=== PATIENT | female | born 1945 | race Caucasian/White ===

== ENCOUNTER 2020-01-19 06:30 | Day surgery (SDC) | payer MEDICARE, MEDICAID, SELFPAY ==
[2020-01-18 15:08] VITALS: BMI 31.6
[2020-01-19 06:51] VITALS: BP 120/71; PULSE 74; RESP 18; TEMP 36.3; O2SAT 93
[2020-01-19] MEDS: sodium chloride 0.9% 1,000 ML 30 ML IV (06:59)
--- NOTE | 2020-01-19 07:03 | P.ANESASSM_ITS ---
Pre-Anesthetic Assessment Pre-Anesthetic Assessment: Height/Weight: Height 1.65 m Weight 86.183 kg Temp Pulse Resp BP Pulse Ox 97.3 F L 74 18 120/71 93 01/19/20 06:51 01/19/20 06:51 01/19/20 06:51 01/19/20 06:51 01/19/20 06:51 Preop Diagnosis: History of colon polyps Proposed Procedure: Operation Date: 01/19/20 07:40 Proposed Procedures p Colonoscopy 25779 K59.00(Not Applicable) - Heriberto Alonso MD Was Beta Rachel taken within 24 hours: Yes Last intake: Intake Last Liquid Date 01/18/20 Last Liquid Time 20:00 Last Solid Date 01/17/20 Social: Social History: Tobacco and No alcohol Packs per day: 0.5 Exam: Pre-Anes Outpt Exam: alert, oriented x 3, clear to auscultation gumaro aterally and regular rate & rhythm Airway: Submandibular: WNL Cervical ROM: WNL MP: 1 Dentition: False Pulmonary: Pulmonary: COPD, Cough and GUILLEN CV/HEM: CV/HEM: CAD, HTN and NE (2010 stent ) Comments: Angel was seen 2 weeks ago and he said everything looked good : : None reported Hepatic: Hepatic: None reported Metabolic: Metabolic: Hyperlipidemia Musc/skel: Musc/skel: OA/DJD Neuropsych: Neuropsych: None reported Anesthetic Plan: ASA status: 3 Anesthesia: MAC Risk of > 500 ml blood loss (7ml/kg in children): No Meds/Allergies Current Medications: Current Medications Generic Name Dose Route Start Last Admin Trade Name Freq PRN Reason Stop Dose Admin Sodium Chloride 1,000 mls @ 30 ml s/hr 01/19/20 06:45 01/19/20 06:59 Sodium Chloride 0.9% IV 30 mls/hr .Q24H NHI Administration PFSH Anesthesia PFSH: Medical History (Updated 01/05/20 @ 13:45 by Kenny Ortiz MD) CAD (coronary artery disease) Chronic obstructive airway disease Constipation Dyslipidemia History of colon polyps History of umbilical hernia Hypertension Myocardial infarct Venous insufficiency Surgical History (Updated 01/05/20 @ 13:45 by Kenny Ortiz MD) History of colonoscopy with polypectomy History of coronary artery stent placement History of laparoscopic cholecystectomy Family History Other Cancer Denies family history of Diabetes Anesthesia complication Bleeding disorder Social History Smoking and tobacco status: current every day smoker cigarettes Packs smoked per day: 0.5 Years cigarettes smoked: 62 [ Other cigarette details: 1 PPD Hx x 40 Years ] Quit status (tobacco): considering quitting Second hand smoke exposure: Yes Alcohol intake: never Lives independently: Yes Household members: none Marital status: / Current occupational status: retired History of recent travel: No Current gender identity: Female Data Anesthesia Cardiac Studies: No Data to Display
[2020-01-19 09:52] VITALS: BP 98/61; PULSE 77; RESP 16; TEMP 36.6; O2SAT 94
--- NOTE | 2020-01-19 09:54 | ANE.PACU2 ---
Inpatient post-anesthesia follow up: Airway intact: Yes Vital signs: Temperature 97.9 F Pulse Rate 77 Respiratory Rate 16 Blood Pressure 98/61 Pulse Oximetry 94 Oxygen Delivery Me thod Nasal Cannula Oxygen Flow Rate 2.0 Fraction of Inspir ed Oxygen Hydration adequate: Yes Nausea and vomiting: No Pain level: 1 Mental status: Baseline
[2020-01-19 10:07] VITALS: BP 103/70; PULSE 72; RESP 18; O2SAT 94
--- NOTE | 2020-01-26 15:58 | P.HP_ITS ---
Same Day Surgery H&P Indication for Procedure/HPI DATE OF PROCEDURE: January 26, 2020 CHIEF COMPLAINT/INDICATIONFOR SURGICAL PROCEDURE: history of polyps PREOP DIAGNOSIS: History of colon polyps PLANNED PROCEDRUE: Operation Date: 01/19/20 07:40 Proposed Procedures p Colonoscopy 29332 K59.00(Not Applicable) - Heriberto Alonso MD Medications/Allergies* Home Medications Medication Instructions Recorded Confirmed Type aspirin 81 mg tablet,delayed 81 mg PO DAILY 08/23/19 01/18/20 History release cholecalciferol (vitamin D3) 2,000 unit PO DAILY 08/23/19 01/19/20 History lisinopril 5 mg tablet 5 mg PO DAILY 08/23/19 01/17/20 History Allergies/Adverse Reactions Allergy/AdvReac Type Severity Reaction Status Date / Time No Known Allergies Allergy Verified 01/18/20 15:06 Pertinent History/Comorbid Conditions* Medical History (Updated 01/05/20 @ 13:45 by Kenny Ortiz MD) CAD (coronary artery disease) Chronic obstructive airway disease Constipation Dyslipidemia History of colon polyps History of umbilical hernia Hypertension Myocardial infarct Venous insufficiency Surgical History (Updated 01/19/20 @ 09:49 by Heriberto Alonso MD) History of coronary artery stent placement History of laparoscopic cholecystectomy Status post colonoscopy (01/19/20) severe diverticulosis : sigmoid colon Family History (Updated 09/02/19 @ 10:12 by Reno Liang) Cancer Denies family history of Diabetes Anesthesia complication Bleeding disorder Social History Smoking and tobacco status: current every day smoker cigarettes Packs smoked per day: 0.5 Years cigarettes smoked: 62 [ Other cigarette details: 1 PPD Hx x 40 Years ] Quit status (tobacco): considering quitting Second hand smoke exposure: Yes Alcohol intake: never Lives independently: Yes Household members: none Marital status: / Current occupational status: retired History of recent travel: No Current gender identity: Female Pertinent Exam Findings alert, oriented x 3, regular rate & rhythm and operative site marked Recommendations Surgery/Procedure today Coding Level of Care Code Acute Burling And Joining Supervisor for Elly Boykin
== END 2020-01-19 10:20 | disposition home or self-care (01) ==
PROVIDERS: Surgery; PCP Registered Nurse; Visit Provider Surgery
PROC: 0DJD8ZZ Inspection of Lower Intestinal Tract, Via Natural or Artificial Opening Endoscopic (ICD-10-PCS; CPT 45378; principal; 2020-01-19 07:40)
DX: Z86.010 Personal history of colon polyps (principal); K59.00 Constipation, unspecified; K57.30 Diverticulosis of large intestine without perforation or abscess without bleeding; F17.210 Nicotine dependence, cigarettes, uncomplicated; J44.9 Chronic obstructive pulmonary disease, unspecified; I25.10 Atherosclerotic heart disease of native coronary artery without angina pectoris; I10 Essential (primary) hypertension; I25.2 Old myocardial infarction; Z95.5 Presence of coronary angioplasty implant and graft; E78.5 Hyperlipidemia, unspecified; M19.90 Unspecified osteoarthritis, unspecified site
CPT/HCPCS: 12345; 45378; J2704; J7030

== ENCOUNTER 2020-01-24 07:57 | Outpatient (CLI) | payer MEDICARE, MEDICAID, SELFPAY ==
--- NOTE | 2020-01-24 14:23 | PFTS_ITS ---
Date of Study:01/24/20 Date of Dictation: MECHANICS: Forced vital capacity (FVC) is reduced. Forced expiratory volume in one second (FEV1) is reduced. FEV1/FVC is normal. FLOW VOLUME LOOP: Narrow. LUNG VOLUMES: Total lung capacity (TLC) is normal. Residual volume (RV) is increased. DIFFUSING CAPACITY FOR CARBON MONOXIDE: Moderately reduced. INTERPRETATION: The pulmonary function tests are consistent with moderate restriction. There is also likely contribution from obstructive lung disease as evidenced by increased residual volume. Lung volumes are suggestive of air trapping. However, a combination of restrictive lung disease with increased residual volume can be seen with neuromuscular weakness. Gas exchange (DLCO) is moderately reduced. MTDD
== END 2020-01-24 07:58 | disposition home or self-care (01) ==
LOC: RT 07:57
PROVIDERS: PCP Nurse Practitioner Family; Visit Provider Internal Medicine Critical Care Medicine
DX: J44.9 Chronic obstructive pulmonary disease, unspecified (principal)
CPT/HCPCS: 94010; 94726; 94729

== ENCOUNTER 2020-02-23 12:57 | Outpatient (CLI) | payer MEDICARE, MEDICAID, SELFPAY ==
--- NOTE | 2020-02-23 13:01 | CT_ITS ---
WS: [id number] LDCT LUNG CANCER SCREENING TECHNIQUE: Noncontrast CT of the chest with coronal and sagittal reformatted images. CLINICAL INFORMATION: NICOTINE DEPENDENCE,CIGARETTES COMPARISON: None. DLP: 71.08 mGy.cm DIvol: 2.[address] scans at [facility] use at least one of these dose optimization techniques: automat ed exposure control; mA and/or kV adjustment per patient size (includes targeted exams where dose is matched to clinical indication); or iterative reconstruction. FINDINGS: Noncalcified pulmonary nodule right lower lobe medially measuring 11 mm. This lesion has a solid appe arance and recommend further evaluation with PET/CT. Additional 3 mm noncalcified pulmonary nodule le ft upper lobe. Recommend 12 month follow-up. Aortic calcification. Coronary calcification. No mediastinal or hilar lymphadenopathy. Normal thyroid gland. Calcified granulomas. Calcified subcarinal lymph nodes. No axillary lymphadenopathy. Adrenal glands are normal. Splenic granulomas. Cholecystectomy clips. Low-attenuation lesion in the a nterior spleen measuring 4.6 x 3.9 cm likely represents splenic cyst or hemangioma. Mild thoracic cur ve with thoracic kyphosis. Anterior hypertrophic changes thoracic spine. CT/CT lung screening [id number] IMPRESSION: 1. Low-attenuation intrasplenic lesion measuring 3.9 x 4.6 cm increased in siz e since 2015 where it measured 0.8 cm. This most likely represents splenic cyst or cavernous hemangioma. This can be followed up with contrast-enhanced CT abd omen pelvis or ultrasound. 2. Additional 3 mm noncalcified nodule left upper lobe. Recommend 12 month fol low-up. 11 MM NONCALCIFIED PULMONARY NODULE RIGHT LOWER LOBE MEDIALLY. RECOMMEND FURTHE R EVALUATION WITH PET/CT. LUNG-RADS: 4B-Suspicious FOLLOW UP: PET/CT recommended
== END 2020-02-23 12:58 | disposition home or self-care (01) ==
LOC: CT 12:58
PROVIDERS: PCP Nurse Practitioner Family; Visit Provider Internal Medicine Critical Care Medicine
DX: Z12.2 Encounter for screening for malignant neoplasm of respiratory organs (principal); F17.210 Nicotine dependence, cigarettes, uncomplicated; J98.4 Other disorders of lung; R91.1 Solitary pulmonary nodule
CPT/HCPCS: G0297

== ENCOUNTER → 2020-02-27 15:56 | Outpatient (BNVA) | payer MEDICARE, MEDICAID, SELFPAY | PROVIDERS: PCP Nurse Practitioner Family; Visit Provider Nurse Practitioner Family | DX: R35.0 Frequency of micturition (principal); I50.9 Heart failure, unspecified; R60.9 Edema, unspecified | CPT/HCPCS: 81000 ==

== ENCOUNTER → 2020-02-28 08:12 | Outpatient (BNVA) | payer MEDICARE, MEDICAID, SELFPAY | PROVIDERS: PCP Nurse Practitioner Family; Visit Provider Nurse Practitioner Family | DX: R60.9 Edema, unspecified (principal); I50.9 Heart failure, unspecified | CPT/HCPCS: 80048; 83880 ==

== ENCOUNTER → 2020-03-01 16:25 | Outpatient (BNVA) | payer MEDICARE, MEDICAID, SELFPAY | PROVIDERS: PCP Nurse Practitioner Family; Visit Provider Nurse Practitioner Family | DX: R35.0 Frequency of micturition (principal); J44.9 Chronic obstructive pulmonary disease, unspecified; Z71.6 Tobacco abuse counseling; R73.09 Other abnormal glucose | CPT/HCPCS: 81000; 83036 ==

== ENCOUNTER 2020-04-10 14:23 | Outpatient (CLI) | payer MEDICARE, MEDICAID, SELFPAY ==
--- NOTE | 2020-04-10 15:00 | USCV_ITS ---
Kristel Son Age: 75 Gender: F : 1945 Exam Date: 04/10/2020 14:32 Ordering Phys: Mara Simpson Technologist: Carroll Connelly Exam Location: [facility] [place] Indication: HX CO CAD BP: 124 / 73 HR: 83 Rhythm: Sinus Technical Quality: Good MEASUREMENTS (Male / Female) Normal Values 2D ECHO LVOT Diameter 2.1 cm LV Ejection Fraction MOD 2C 63.3 % LV Ejection Fraction 2C AL 64.5 % LA Diameter 3.5 cm LA Width 3.1 cm LA Height 4.3 cm RA Width 3.4 cm RA Height 4.3 cm Aorta at Sinotubular Diameter 1.0 cm M-MODE LV Diastolic Diameter MM 4.2 cm 4.2 - 5.9 / 3.9 - 5.3 cm LV Systolic Diameter MM 2.9 cm LV Ejection Fraction MM Teich 57.4 % IVS Diastolic Thickness MM 1.1 cm 0.6 - 1.0 / 0.6 - 0.9 cm IVS Systolic Thickness MM 1.9 cm LVPW Diastolic Thickness MM 1.1 cm 0.6 - 1.0 / 0.6 - 0.9 cm LVPW Systolic Thickness MM 1.9 cm RV Diastolic Diameter MM 2.1 cm Aortic Annulus Diameter 2.7 cm LA Ao Ratio MM 1.4 MV E Point Septal Separation 0.8 cm DOPPLER AV Peak Velocity 162.3 cm/s LVOT Peak Velocity 98.0 cm/s AV Area Cont Eq vti 2.5 cm squared AV Area Cont Eq pk 2.2 cm squared MV Area PHT 4.5 cm squared Mitral E to A Ratio 0.9 MV E' Velocity 58.2 cm/s Mitral E to MV E' Ratio 10.1 Mitral E to LV E' Lateral Ratio 9.5 Mitral E to LV E' Septal Ratio 10.9 TR Peak Velocity 160.7 cm/s TR Peak Gradient 10.3 mmHg TV Peak E Velocity 71.0 cm/s Right Atrial Pressure 3.0 mmHg Pulmonary Artery Systolic Pressu 13.3 mmHg PV Peak Velocity 97.0 cm/s FINDINGS Left Ventricle Normal left ventricular size, systolic function with no regional wall motion abnormalities. LVEF is 55 to 60%. Normal left ventricular wall thickness. LV wall thickness is normal. Grade 1 diastolic dysfunction is noted. Right Ventricle The right ventricle is normal in size and function. Right Atrium The right atrium is normal in size. Left Atrium The left atrium is normal in size. Mitral Valve Structurally normal mitral valve without significant stenosis or prolapse. There is no mitral regurgitation. Aortic Valve Not well-visualized. Aortic stenosis was noted.. There is no aortic regurgitation. Tricuspid Valve Structurally normal tricuspid valve without significant stenosis or regurgitation. Insufficient TR jet to calculate RVSP. Pulmonic Valve Not well-visualized. Pericardium Normal pericardium without effusion. Aorta Normal ascending aorta dimension. CONCLUSIONS LV systolic function is normal with EF of 55 to 60%. Grade 1 diastolic dysfunction is noted. No significant valvular heart disease noted. Compared to prior echocardiogram from 11/29/2014, no significant changes have been noted. Dave Del Toro MD (Electronically Signed) Final Date: 16 April 2020 17:48 S
== END 2020-04-10 14:24 | disposition home or self-care (01) ==
LOC: US 14:25
PROVIDERS: PCP Nurse Practitioner Family; Visit Provider Nurse Practitioner Family
DX: I50.30 Unspecified diastolic (congestive) heart failure (principal); I51.81 Takotsubo syndrome
CPT/HCPCS: 93306

== ENCOUNTER → 2020-04-11 10:05 | Outpatient (BNVA) | payer MEDICARE, MEDICAID, SELFPAY | PROVIDERS: PCP Nurse Practitioner Family; Visit Provider Nurse Practitioner Family | DX: I50.30 Unspecified diastolic (congestive) heart failure (principal) | CPT/HCPCS: 80048; 83880 ==

== ENCOUNTER 2020-12-05 13:18 | Outpatient (CLI) | payer MEDICARE, MEDICAID, SELFPAY ==
--- NOTE | 2020-12-05 13:22 | XR_ITS ---
WS: [id number] Thoracic spine, 3 views, 12/05/2020 Clinical Data: M54.9 - Dorsalgia, unspecified Comparison: None. Findings: No compression fractures are seen. The disc heights are normal. There is a dextroscoliosis. Moderate osteoarthritis of all the vertebral bodies is present. There is osteoporosis. There are clips in the right upper quadrant from a cholecystectomy. XR/XR thoracic spine 3V* [id number] Impression: 1. Osteoarthritis and osteoporosis of all the thoracic vertebral bodies. 2. Slight dextroscoliosis of the thoracic spine.
--- NOTE | 2020-12-05 13:22 | XR_ITS ---
WS: [id number] Lumbar spine, 3 views, 12/05/2020 Clinical Data: M54.9 - Dorsalgia, unspecified Comparison: None. Findings: No compression fractures or subluxation is seen. There is degenerative disc narrowing at L4-L5 and L5 -S1. Osteoarthritis of the L3-L5 vertebral bodies is noted.. The transverse processes and SI joints a re normal. There are clips in the right upper quadrant from a cholecystectomy. There is calcification in the wal l of the abdominal aorta but no aneurysm. XR/XR lumbar spine 2-3V* [id number] Impression: 1. Osteoarthritis of the vertebral bodies L3-L5. 2. Degenerative disc narrowing at L4-L5 and L5-S1.
== END 2020-12-05 13:19 | disposition home or self-care (01) ==
LOC: RAD 13:20
PROVIDERS: PCP Nurse Practitioner Family; Visit Provider Nurse Practitioner Family
DX: M54.5 Low back pain (principal); M54.6 Pain in thoracic spine; M47.814 Spondylosis without myelopathy or radiculopathy, thoracic region; M81.0 Age-related osteoporosis without current pathological fracture; M41.84 Other forms of scoliosis, thoracic region; M47.816 Spondylosis without myelopathy or radiculopathy, lumbar region
CPT/HCPCS: 72072; 72100; 81000

== ENCOUNTER 2020-12-12 14:52 | Outpatient (CLI) | payer MEDICARE, MEDICAID, SELFPAY ==
--- NOTE | 2020-12-12 14:59 | XR_ITS ---
WS: [id number] DEXA (DUAL ENERGY X-RAY ABSORPTIOMETRY) Bone mineral density was performed using a [employer] machine. HISTORY: M81.0 - Age-related osteoporosis without current pathology... COMPARISON: None available. Lumbar spine BMD (L1-L4): 1.019 g/cm2 T score: -1.3 Z score: -0.3 Total hip BMD: Left: 0.773 g/cm2. T score: -1.9 Z score: -0.5 Right: 0.787 g/cm2. T score: -1.8 Z score: -0.4 10 year probability of a major osteoporotic fracture is 20%. XR/XR DEXA axial skeleton* [id number] IMPRESSION: OSTEOPENIA based upon the WHO classification for females.
== END 2020-12-12 14:53 | disposition home or self-care (01) ==
PROVIDERS: PCP Nurse Practitioner Family; Visit Provider Nurse Practitioner Family
DX: M81.0 Age-related osteoporosis without current pathological fracture (principal); M85.88 Other specified disorders of bone density and structure, other site
CPT/HCPCS: 77080

== ENCOUNTER → 2020-12-17 15:55 | Outpatient (BNVA) | payer MEDICARE, MEDICAID, SELFPAY | PROVIDERS: PCP Nurse Practitioner Family; Visit Provider Nurse Practitioner Family | DX: M81.0 Age-related osteoporosis without current pathological fracture (principal) | CPT/HCPCS: 82310 ==

== ENCOUNTER 2021-01-01 11:36 | Outpatient (RCR) | payer MEDICARE, MEDICAID, SELFPAY | END 2021-01-26 23:59 | disposition home or self-care (01) | LOC: SPT 11:36 | PROVIDERS: PCP Nurse Practitioner Family; Referring Provider Nurse Practitioner Family; Visit Provider Nurse Practitioner Family | DX: M54.5 Low back pain (principal) | CPT/HCPCS: 97110; 97161 ==

== ENCOUNTER → 2021-01-02 09:59 | Outpatient (BNVA) | payer MEDICARE, MEDICAID, SELFPAY | PROVIDERS: PCP Nurse Practitioner Family; Visit Provider Nurse Practitioner Family | DX: M51.36 Other intervertebral disc degeneration, lumbar region (principal); I10 Essential (primary) hypertension; E55.9 Vitamin D deficiency, unspecified | CPT/HCPCS: 80053; 82306 ==

== ENCOUNTER 2021-01-27 06:00 | Outpatient (RCR) | payer MEDICARE, MEDICAID, SELFPAY | END 2021-02-26 23:59 | disposition home or self-care (01) | LOC: SPT 06:00 | PROVIDERS: PCP Nurse Practitioner Family; Referring Provider Nurse Practitioner Family; Visit Provider Nurse Practitioner Family | DX: M54.5 Low back pain (principal) | CPT/HCPCS: 97110 ==

== ENCOUNTER 2021-02-14 10:02 | Outpatient (CLI) | payer MEDICARE, MEDICAID, SELFPAY ==
--- NOTE | 2021-02-14 10:11 | CT_ITS ---
WS: [id number] LDCT LUNG CANCER SCREENING HISTORY: Nicotine Dependence TECHNIQUE: Axial imaging performed from the apices to 1 cm below the costophrenic angles. Coronal and sagittal reformats are submitted with axial MIP series. All CT scans at [facility] use at least one of these dose optimization techniques: automated exposure control; mA and/or kV adjustment per patient size (includes targeted exams where dose is matched to clinical indication); or iterativ e reconstruction. DLP: 47.46 mGy.cm DIvol: 1.58 mGy COMPARISON: 02/23/2020 Diagnostic quality: Satisfactory Lung Nodules: Well-circumscribed 11 mm nodule in the superior segment RIGHT lower lobe is PET/CT nega tive and contain fat. Probably a hamartoma. There is an additional benign calcified nodule at the RIG HT lung base. No new or suspicious pulmonary nodules. Mild pleural thickening along the RIGHT superio r major fissure. Lungs: Pulmonary hyperexpansion from emphysema. Heart: Mild enlargement of the heart. No pericardial effusion. Moderate coronary artery calcification s. Other findings: Mild atherosclerosis aorta with no aneurysm. Normal size pulmonary artery. Benign RIG HT hilar and subcarinal calcified lymph nodes. Small hiatal hernia. Moderate increase in thoracic kyp hosis. CT/CT lung screening [id number] IMPRESSION: LUNG-RADS: 2-Benign Appearance or Behavior FOLLOW UP: 12 Month: Continue annual screening with LDCT OTHER FINDINGS (S MODIFIER): None.
== END 2021-02-14 10:03 | disposition home or self-care (01) ==
LOC: RAD 10:07
PROVIDERS: PCP Nurse Practitioner Family; Visit Provider Internal Medicine Critical Care Medicine
DX: Z12.2 Encounter for screening for malignant neoplasm of respiratory organs (principal); F17.210 Nicotine dependence, cigarettes, uncomplicated; I51.7 Cardiomegaly; I70.0 Atherosclerosis of aorta
CPT/HCPCS: 71271

== ENCOUNTER 2021-02-27 06:00 | Outpatient (RCR) | payer MEDICARE, MEDICAID, SELFPAY | END 2021-03-28 23:59 | disposition home or self-care (01) | LOC: SPT 06:00 | PROVIDERS: PCP Nurse Practitioner Family; Referring Provider Nurse Practitioner Family; Visit Provider Nurse Practitioner Family | DX: M54.5 Low back pain (principal) | CPT/HCPCS: 97110 ==

== ENCOUNTER → 2021-08-29 14:16 | Outpatient (BNVA) | payer MEDICARE, MEDICAID, SELFPAY | PROVIDERS: PCP Nurse Practitioner Family; Visit Provider Internal Medicine Critical Care Medicine | DX: J44.9 Chronic obstructive pulmonary disease, unspecified (principal); R91.1 Solitary pulmonary nodule; F17.210 Nicotine dependence, cigarettes, uncomplicated; J30.9 Allergic rhinitis, unspecified; J44.1 Chronic obstructive pulmonary disease with (acute) exacerbation | CPT/HCPCS: 99213 ==

== ENCOUNTER → 2021-09-16 10:34 | Outpatient (BNVA) | payer MEDICARE, MEDICAID, SELFPAY | PROVIDERS: PCP Nurse Practitioner Family; Visit Provider Nurse Practitioner Family | DX: R39.9 Unspecified symptoms and signs involving the genitourinary system (principal); R53.83 Other fatigue; I10 Essential (primary) hypertension | CPT/HCPCS: 80053; 80061; 81000; 85025 ==

== ENCOUNTER → 2022-02-19 13:04 | Outpatient (BNVA) | payer MEDICARE, MEDICAID, SELFPAY | PROVIDERS: PCP Nurse Practitioner Family; Visit Provider Internal Medicine | DX: I11.0 Hypertensive heart disease with heart failure (principal); I50.30 Unspecified diastolic (congestive) heart failure; Z95.5 Presence of coronary angioplasty implant and graft; E78.5 Hyperlipidemia, unspecified; I25.10 Atherosclerotic heart disease of native coronary artery without angina pectoris; J44.9 Chronic obstructive pulmonary disease, unspecified; F17.210 Nicotine dependence, cigarettes, uncomplicated | CPT/HCPCS: 99213; 99214 ==

== ENCOUNTER → 2022-03-05 10:16 | Outpatient (BNVA) | payer MEDICARE, MEDICAID, SELFPAY | PROVIDERS: PCP Nurse Practitioner Family; Visit Provider Internal Medicine Critical Care Medicine | DX: J44.9 Chronic obstructive pulmonary disease, unspecified (principal); R91.1 Solitary pulmonary nodule; F17.200 Nicotine dependence, unspecified, uncomplicated | CPT/HCPCS: 99213; 99214 ==

== ENCOUNTER → 2022-04-10 09:23 | Outpatient (BNVA) | payer MEDICARE, MEDICAID, SELFPAY | PROVIDERS: PCP Nurse Practitioner Family; Visit Provider Nurse Practitioner Family | DX: A09 Infectious gastroenteritis and colitis, unspecified (principal); R19.7 Diarrhea, unspecified | CPT/HCPCS: 87506 ==

== ENCOUNTER 2022-04-14 08:17 | Outpatient (CLI) | payer MEDICARE, MEDICAID, SELFPAY ==
--- NOTE | 2022-04-14 08:45 | MR_ITS ---
WS: [id number] MRI LUMBAR SPINE NONCONTRAST HISTORY: Low back pain radiating down LEFT leg. One month. COMPARISON: Radiographs 12/05/2020 TECHNIQUE: Sagittal and axial multisequence imaging is submitted. Moderate increase in thoracic kyphosis. Very slight increased signal within T5, T6, T9 and T10 probab ly due to hemangiomas. Slight increase in the lumbar lordosis. Posterior lumbar alignment is normal. L1 vertebral hemangioma . Very minimal disc desiccation. No fractures or marrow edema. Conus terminates normally at L1. L1-L2: Mild ligamentum flavum hypertrophy and facet arthritis. Mild RIGHT foraminal stenosis. L2-L3: Mild diffuse annular disc bulging. Mild ligamentum flavum and facet arthritis. Very mild bel inal stenosis. L3-L4: Mild disc bulging with moderate ligamentum flavum and facet arthritis. Small LEFT foraminal di sc protrusion with annular fissure. There is very slight contact on the LEFT exiting L3 nerve root. L4-L5: Diffuse annular disc bulging with ligamentum flavum and facet arthritis. Moderate ligamentum f lavum hypertrophy encroaching into the central canal. Moderate facet joint arthritis. Moderate centra l and subarticular recess stenosis. Mild foraminal stenosis. There is mild encroachment upon the aly ersing L5 nerve roots bilaterally. L5-S1: Mild disc bulging with a focal central and LEFT paracentral disc protrusion. Disc protrusion e xtends into the LEFT foramina. There is disc contacting the LEFT S1 and L5 nerve roots. LEFT S1 nerve root is being displaced posteriorly. Mild LEFT foraminal stenosis. Small bilateral cortical renal cysts. Tarlov cyst S2. MR/MR lumbar spine wo con* [id number] IMPRESSION: 1. Central, LEFT paracentral and foraminal disc protrusion at L5-S1 with conta ct on the LEFT L5 and S1 nerve roots. 2. Moderate central and bilateral subarticular recess stenosis at L4-5 with mi ld encroachment upon the traversing L5 nerve roots. Moderate facet joint arthri tis at L4-5. 3. Very mild RIGHT foraminal stenosis at L1-2 and bilaterally at L2-3. 4. Small LEFT foraminal disc protrusion with fissure at L3-4. Very slight cont act on the LEFT exiting L3 nerve root.
== END 2022-04-14 08:18 | disposition home or self-care (01) ==
LOC: RAD 08:18
PROVIDERS: PCP Nurse Practitioner Family; Visit Provider Nurse Practitioner Family
DX: M54.16 Radiculopathy, lumbar region (principal); M48.061 Spinal stenosis, lumbar region without neurogenic claudication; M51.26 Other intervertebral disc displacement, lumbar region; M51.27 Other intervertebral disc displacement, lumbosacral region
CPT/HCPCS: 72148

== ENCOUNTER 2022-04-22 14:13 | Outpatient (CLI) | payer MEDICARE, MEDICAID, SELFPAY ==
[2022-04-22] MEDS: iohexol 350 mg/mL 100 mL Btl PO (15:22)
[2022-04-22] MEDS: iohexol 350 mg/mL 100 mL Btl IV (15:22)
--- NOTE | 2022-04-22 15:30 | CT_ITS ---
WS: [id number] CT ABDOMEN PELVIS TECHNIQUE: Contrast-enhanced CT of the abdomen and pelvis with coronal and sagittal reformatted image s. CLINICAL INFORMATION: K57.92 - Diverticulitis of intestine, part unspecified, w... COMPARISON: PET/CT March 03, 2020 DLP: 1173.[address] scans at [facility] use at least one of these dose optimization techniques: automated e xposure control; mA and/or kV adjustment per patient size (includes targeted exams where dose is matc hed to clinical indication); or iterative reconstruction. FINDINGS:Mild thickening and enhancement of the sigmoid colon suspicious for acute diverticulitis. No drainable abscess or fluid collection. Recommend correlation for infection. Hepatomegaly with enlargement RIGHT hepatic lobe. Prior cholecystectomy. Portal vein and splenic vein are patent. Low-attenuation anterior splenic lesion measuring 5.2 x 4.1 cm consistent with cyst or h emangioma. This is FDG negative on the prior PET/CT. Calcified granuloma RIGHT lower lobe. Small esophageal hiatal hernia. Adrenal glands are normal. Norm al renal parenchymal enhancement. Small bilateral renal cysts. No hydronephrosis in either kidney. No rmal caliber abdominal aorta. Aortic calcification. Celiac and SMA are patent. Small fat-containing s upraumbilical hernia. Prior hysterectomy. Sigmoid diverticulosis. No evidence of high-grade small or large bowel obstructio n. LEFT ovarian cyst similar to the prior PET/CT measuring 2.4 x 2.2 CM. Small cystocele. No abdomin al or pelvic lymphadenopathy. No inguinal lymphadenopathy. CT/CT abdomen pelvis w con* [id number] IMPRESSION: 1. Mild thickening of the sigmoid colon with submucosal edema suspicious for a cute diverticulitis. Recommend correlation for infection. 2. No other suspicious findings. 3. Mild hepatomegaly with cholecystectomy. 4. Stable splenic cyst or hemangioma. 5. Small esophageal hiatal hernia. 6. Stable LEFT ovarian cyst. 7. No other suspicious findings.
[2022-04-22 15:31] LABS: Blood Urea Nitrogen 13 mg/dL (8-23)
== END 2022-04-22 14:14 | disposition home or self-care (01) ==
LOC: RAD 14:14
PROVIDERS: PCP Nurse Practitioner Family; Visit Provider Nurse Practitioner Family
DX: K57.92 Diverticulitis of intestine, part unspecified, without perforation or abscess without bleeding (principal); R16.0 Hepatomegaly, not elsewhere classified; D73.4 Cyst of spleen; K44.9 Diaphragmatic hernia without obstruction or gangrene; N83.202 Unspecified ovarian cyst, left side
CPT/HCPCS: 74177; 82565; 84520

== ENCOUNTER 2022-04-25 12:25 | Outpatient (CLI) | payer MEDICARE, MEDICAID, SELFPAY ==
--- NOTE | 2022-04-25 13:09 | CT_ITS ---
WS: [id number] LDCT LUNG CANCER SCREENING TECHNIQUE: Noncontrast CT of the chest with coronal and sagittal reformatted images. CLINICAL INFORMATION: annual lung screening COMPARISON: CT February 14, 2021 DLP: 74.89 mGy.cm DIvol: Mean CTDIvol: 1.60 (mGy) All CT scans at [facility] use at least one of these dose optimization techniques: automat ed exposure control; mA and/or kV adjustment per patient size (includes targeted exams where dose is matched to clinical indication); or iterative reconstruction. FINDINGS: Stable 11 mm nodule superior segment RIGHT lower lobe likely hamartoma is unchanged. Stable tiny 3 mm nodule RIGHT upper lobe. Additional tiny 2 mm nodule RIGHT upper lobe. Noncalcified granuloma RIGHT lung base. No other suspicious pulmonary parenchymal opacities. Moderat e chronic emphysematous changes with hyperinflation. Aortic calcification. Coronary calcification. No axillary lymphadenopathy. Normal GE junction. Small esophageal hiatal hernia. No mediastinal or hilar lymphadenopathy. No axillary lymphadenopathy. Cyst or hemangioma in the anterior spleen measuring 5.4 cm is unchanged. Splenic granulomas. RIGHT adrenal gland is normal.. Small LEFT adrenal adenoma. Presumed hemorrhagic cyst RIGHT kidney measuring 11 mm with increased attenuation. Cholecystectomy clips. Hypertrophic changes thoracic spine. Moderate thoracic kyphosis. CT/CT lung screening [id number] IMPRESSION: LUNG-RADS: 2-Benign Appearance or Behavior FOLLOW UP: 12 Month: Continue annual screening with LDCT
== END 2022-04-25 12:26 | disposition home or self-care (01) ==
LOC: RAD 12:25
PROVIDERS: PCP Nurse Practitioner Family; Visit Provider Internal Medicine Critical Care Medicine
DX: Z12.2 Encounter for screening for malignant neoplasm of respiratory organs (principal); F17.210 Nicotine dependence, cigarettes, uncomplicated
CPT/HCPCS: 71271

== ENCOUNTER → 2022-05-07 09:30 | Outpatient (BNVA) | payer MEDICARE, MEDICAID, SELFPAY | PROVIDERS: PCP Nurse Practitioner Family; Visit Provider Anesthesiology Pain Medicine | DX: M51.36 Other intervertebral disc degeneration, lumbar region (principal); M51.16 Intervertebral disc disorders with radiculopathy, lumbar region; M47.816 Spondylosis without myelopathy or radiculopathy, lumbar region; M79.604 Pain in right leg; M79.605 Pain in left leg; F17.210 Nicotine dependence, cigarettes, uncomplicated | CPT/HCPCS: 99205 ==

== ENCOUNTER → 2022-06-04 12:22 | Outpatient (BNVA) | payer MEDICARE, MEDICAID, SELFPAY | PROVIDERS: PCP Nurse Practitioner Family; Visit Provider Anesthesiology Pain Medicine | DX: M54.16 Radiculopathy, lumbar region (principal); M25.552 Pain in left hip | CPT/HCPCS: 64483; 64484 ==

== ENCOUNTER → 2022-06-16 13:40 | Outpatient (BNVA) | payer MEDICARE, MEDICAID, SELFPAY | PROVIDERS: PCP Nurse Practitioner Family; Visit Provider Anesthesiology Pain Medicine | DX: M54.16 Radiculopathy, lumbar region (principal) | CPT/HCPCS: 64483; 64484; J1100; J3490 ==

== ENCOUNTER → 2022-07-09 10:43 | Outpatient (BNVA) | payer MEDICARE, MEDICAID, SELFPAY | PROVIDERS: PCP Nurse Practitioner Family; Visit Provider Anesthesiology Pain Medicine | DX: M51.36 Other intervertebral disc degeneration, lumbar region (principal); M51.16 Intervertebral disc disorders with radiculopathy, lumbar region; M47.816 Spondylosis without myelopathy or radiculopathy, lumbar region; M79.604 Pain in right leg; M79.605 Pain in left leg | CPT/HCPCS: 99213 ==

== ENCOUNTER 2022-07-28 12:02 | Emergency (ER) | payer MEDICARE, MEDICAID, SELFPAY ==
--- NOTE | 2022-07-28 12:08 | PC.NURSE ---
ATTEMPTED TO TRIAGE PT. PT IS ON THE BEDSIDE COMMODE.
[2022-07-28 12:19] VITALS: BP 129/74; PULSE 73; RESP 16; TEMP 36.4; O2SAT 95
[2022-07-28 12:36] LABS: Basophils # 0.1 10^3/uL (0.0-0.1); Basophils % 0.6 %; Eosinophils # 0.1 10^3/uL (0.0-0.8); Eosinophils % 1.1 %; Hematocrit 45.1 % (37.0-47.0); Hemoglobin 14.6 g/dL (11.5-15.3); Lymphocytes # 1.3 10^3/uL (0.8-4.8); Lymphocytes % 15.1 %; Mean Corpuscular HGB Conc 32.4 g/dL (30.0-36.0); Mean Corpuscular Hemoglobin 30.9 pg (28.0-34.0); Mean Corpuscular Volume 95.3 fl (81-99); Mean Platelet Volume 12.7 fL (7.4-10.4); Monocytes # 0.4 10^3/uL (0.2-0.9); Monocytes % 4.5 %; Neutrophils # 6.95 10^3/uL (1.8-7.7); Neutrophils % 78.5 %; Nucleated Red Blood Cells % 0 %; Platelet Count 217 10^3/cmm (130-400); Red Blood Count 4.73 10^6/uL (4.1-5.3); Red Cell Distribution Width 12.8 % (12.1-15.1); White Blood Count 8.9 10^3/uL (4.0-10.0)
--- NOTE | 2022-07-28 12:49 | PC.NURSE ---
pt resting in bed, visitor at bedside. reports explosive diarrhea that began suddenly around 10:00. denies n/v or fevers. denies symptoms, denies blood in stool
--- NOTE | 2022-07-28 13:08 | ED_ITS ---
HPI - Nausea/Vomiting/Diarrhea General: Chief complaint: Nausea/Vomiting/Diarrhea Stated complaint: NEAR SYNCOPE, N. V,D Time Seen by Provider: 07/28/22 12:05 History of Present Illness: This 77-year-old female presents to the ER with acute onset nausea/vomiting/diarrhea that started around 10 AM. She has vomited twice and has had about 10 bowel movements. They are all watery with no blood in it. She has intermittent abdominal cramping which usually occurs shortly before a bowel movement. There was associated dizziness, sweating and weakness which made patient's daughter panic and bring her to the ER for evaluation. Patient appears clinically stable. Patient denies chest pain, shortness of breath or any other pertinent systemic symptoms. Associated nausea: Yes Associated symtoms: Reports nausea; Denies change in vision, chest pain, dysuria or headache(s) Review of Systems Const: Denies: chills, body aches or change in appetite Eyes: Denies: change in vision or eye discharge ENMT: Denies: throat pain, dental pain or nasal discharge Card: Denies: chest pain or lightheadedness GI: Reports: abdominal pain (Intermittent cramping.), nausea, vomiting and diarrhea : Denies: dysuria Musc: Denies: neck pain or back pain Neuro: Denies: headache(s) or weakness in extremities Psych: Denies: depression Douglas/Lymph: Denies: easy bruising All/Imm: Denies: urticaria, tongue swelling or facial swelling PFSH ED PFSH: Medical History (Updated 07/28/22 @ 15:13 by Emelia Chavis MD) CAD (coronary artery disease) Chronic obstructive airway disease Constipation Diastolic congestive heart failure Dyslipidemia History of colon polyps History of umbilical hernia Hypertension Myocardial infarct Venous insufficiency Surgical History History of coronary artery stent placement History of laparoscopic cholecystectomy Status post colonoscopy (01/19/20) severe diverticulosis : sigmoid colon Family History Other Cancer Denies family history of Diabetes Anesthesia complication Bleeding disorder Social History Smoking and tobacco status: current every day smoker cigarettes Years cigarettes smoked: 62 [ Other cigarette details: 1 PPD Hx x 40 Years] Quit status (tobacco): considering quitting Second hand smoke exposure: Yes Smoking risk assessment/counseling performed?: Yes Alcohol intake: never Counseling given: No Counseling given: No Lives independently: Yes Household members: family Marital status: / Current occupational status: retired History of recent travel: No Current gender identity: Female Physical Exam Const: COMMON NORMALS: no acute distress, patient oriented x3, no limitations and alert HENMT: COMMON NORMALS: normocephalic HEAD & SCALP: normocephalic Eye: COMMON NORMALS: EOMs intact bilaterally Neck/C-Spine: COMMON NORMALS: full ROM and supple Chest: COMMONS NORMALS: normal inspection of the chest Resp: COMMON NORMALS: normal respiratory effort, No retractions, No use of accessory muscles and clear to auscultation bilaterally AUSCULTATION: clear to auscultation bilaterally Cardio: COMMON NORMALS: regular rate, regular rhythm and No murmurs present (Cardio) RATE: regular rate RHYTHM: regular rhythm GI: COMMON NORMALS: Normal to inspection, nondistended, normoactive bowel sounds present and non-tender : COMMON NORMALS: Yes no CVA tenderness BLADDER/KIDNEY EXAM: Yes no CVA tenderness Back/Pelvis: COMMON NORMALS: no CVA tenderness and no thoracic nor lumbar tenderness Extremity: GENERAL: Yes normal exam except as noted Neuro: COMMON NORMALS: patient oriented x3 and no focal motor deficits SENSORIUM/ORIENTATION: Yes alert Psych: COMMON NORMALS: mental status grossly normal and cooperative Course Vital Signs: Vital signs: Vital Signs Temperature 97.5 F L 07/28/22 12:19 Pulse Rate 82 07/28/22 14:45 Respiratory Rate 18 07/28/22 14:45 Blood Pressure 81/66 07/28/22 14:45 Pulse Oximetry 94 07/28/22 14:45 Oxygen Delivery Me thod 07/28/22 14:45 MDM - Nausea/Vomiting/Diarrhea Medical Decision Making Medical decision making: Patient presents to the ER with acute onset nausea/vomiting that started around 10 AM this morning. At the time of ER arrival, patient had had about 10 watery bowel movements. She had vomited twice. She has no fever. On exam, abdomen is not surgical. After receiving antiemetics and IV fluids, patient felt better. There were no subsequent vomiting or diarrhea episodes in the ER. Patient was advised to provide a urine sample for testing. She said she wanted to go home because of inclement weather, she did not want to be stuck in the ER. She was advised to take Zofran as needed for nausea/vomiting and to return with any new concerning symptoms. Lab Data 07/28/22 12:06 07/28/22 12:57 Laboratory Results WBC 8.9 10^3/uL (4.0-10.0) 07/28/22 12:06 RBC 4.73 10^6/uL (4.1-5.3) 07/28/22 12:06 Hgb 14.6 g/dL (11.5-15.3) 07/28/22 12:06 Hct 45.1 % (37.0-47.0) 07/28/22 12:06 MCV 95.3 fl (81-99) 07/28/22 12:06 MCH 30.9 pg (28.0-34.0) 07/28/22 12:06 MCHC 32.4 g/dL (30.0-36.0) 07/28/22 12:06 RDW 12.8 % (12.1-15.1) 07/28/22 12:06 Plt Count 217 10^3/cmm (130-400) 07/28/22 12:06 MPV 12.7 fL (7.4-10.4) H 07/28/22 12:06 Neut % (Auto) 78.5 % 07/28/22 12:06 Lymph % (Auto) 15.1 % 07/28/22 12:06 Mcpherson % (Auto) 4.5 % 07/28/22 12:06 Eos % (Auto) 1.1 % 07/28/22 12:06 Baso % (Auto) 0.6 % 07/28/22 12:06 Neut # (Auto) 6.95 10^3/uL (1.8-7.7) 07/28/22 12:06 Lymph # (Auto) 1.3 10^3/uL (0.8-4.8) 07/28/22 12:06 Mcpherson # (Auto) 0.4 10^3/uL (0.2-0.9) 07/28/22 12:06 Eos # (Auto) 0.1 10^3/uL (0.0-0.8) 07/28/22 12:06 Baso # (Auto) 0.1 10^3/uL (0.0-0.1) 07/28/22 12:06 Nucleated RBC % (auto) 0 % 07/28/22 12:06 Nucleated RBCs # 0.0 /100WBC 07/28/22 12:06 Sodium 139 mmol/L (136-145) 07/28/22 12:57 Potassium 4.0 mmol/L (3.5-5.1) 07/28/22 12:57 Chloride 103 mmol/L (98-107) 07/28/22 12:57 Carbon Dioxide 26 mmol/L (22-29) 07/28/22 12:57 Anion Gap 14.0 (5-19) 07/28/22 12:57 BUN 16 mg/dL (8-23) 07/28/22 12:57 Creatinine 0.8 mg/dL (0.5-0.9) 07/28/22 12:57 GFR Calculation Not Reportable 07/28/22 12:57 Glucose 104 mg/dL (65-115) 07/28/22 12:57 Calculated Osmolality 289 mOsm/kg (285-295) 07/28/22 12:57 Calcium 9.8 mg/dL (8.5-10.5) 07/28/22 12:57 Total Bilirubin 0.4 mg/dL (0.15-1.2) 07/28/22 12:57 AST 24 U/L (0-32) 07/28/22 12:57 ALT 16 U/L (0-33) 07/28/22 12:57 Alkaline Phosphatase 82 U/L (35-105) 07/28/22 12:57 Total Protein 6.7 g/dL (6.6-8.7) 07/28/22 12:57 Albumin 4.0 g/dL (3.5-5.2) 07/28/22 12:57 Globulin 2.7 g/dL (1.3-4.6) 07/28/22 12:57 Discharge Plan Discharge Patient Disposition: Home Clinical Impression: Gastroenteritis Condition: Stable Prescriptions: New ondansetron 4 mg tablet,disintegrating 4 mg PO Q6H PRN (Reason: nausea and vomiting) Qty: 14 0RF No Action acetaminophen [Tylenol Arthritis Pain] 650 mg tablet extended release 650 mg PO TID coenzyme Q10 100 mg capsule 100 mg PO DAILY evening primrose oil 500 mg capsule 1,000 mg PO BID Rx Instructions: give with meal/snack carvedilol 6.25 mg tablet 6.25 mg PO BID Qty: 180 3RF ascorbate calcium (vitamin C) 500 mg tablet 500 mg PO DAILY aspirin [Aspir-Low] 81 mg tablet,delayed release (DR/EC) 81 mg PO DAILY cholecalciferol (vitamin D3) 2,000 unit/drop drops 2,000 unit PO DAILY metronidazole 250 mg tablet 250 mg PO BID 7 Days Qty: 14 0RF bupivacaine (PF) 0.25 % (2.5 mg/mL) solution 2 ml Infiltration ONCE Qty: 1 0RF tramadol 50 mg tablet 50 mg PO BID PRN (Reason: pain) 5 Days Qty: 10 0RF sodium chloride 0.9 % Solution 5 ml epidural ONCE Qty: 1 0RF bupivacaine (PF) 0.25 % (2.5 mg/mL) solution 2 ml Infiltration ONCE Qty: 1 0RF atorvastatin 80 mg tablet 80 mg PO DAILY Qty: 90 3RF lisinopril 5 mg tablet 5 mg PO DAILY Qty: 90 2RF Trelegy Ellipta 100-62.5-25 mcg blister with device See Rx Instructions .ROUTE .COMPLEX Qty: 60 6RF Dose Instruction: INHALE 1 PUFF BY MOUTH EVERY 24 HOURS Rx Instructions: INHALE 1 PUFF BY MOUTH EVERY 24 HOURS gabapentin 100 mg capsule 100 mg PO DAILY Qty: 30 0RF albuterol sulfate 90 mcg/actuation HFA aerosol inhaler See Rx Instructions .ROUTE .COMPLEX Qty: 25.5 0RF Dose Instruction: INHALE 2 PUFFS BY MOUTH FOUR TIMES DAILY Rx Instructions: INHALE 2 PUFFS BY MOUTH FOUR TIMES DAILY alendronate 70 mg tablet See Rx Instructions .ROUTE .COMPLEX Qty: 12 0RF Dose Instruction: TAKE 1 TABLET BY MOUTH WEEKLY Rx Instructions: TAKE 1 TABLET BY MOUTH WEEKLY Discharge Orders: Discharge ED (Routine); Ordered 07/28/22 Ordered By: Emelia Chavis Referrals: Ashlyn Lanier FNP [Primary Care Provider] - Patient Instructions: Opioid Safety, Pain Management Activity Restrictions/Additional Instructions: Maintain adequate fluid intake. Take Zofran as needed for nausea/vomiting. Follow-up with your primary care physician in 2 to 3 days for reevaluation. Return if you develop persistent vomiting, fever or any new concerning symptoms. Coding Level of Care Code ED Auction Clerk for Chg Fwd Exam Comprehensive
[2022-07-28] MEDS: sodium chloride 0.9% 1,000 ML 999 ML IV ×2 (13:18→14:52)
[2022-07-28] MEDS: metoclopramide 5 mg/mL SDV 2 mL 10 MG IVP (13:19)
[2022-07-28 13:27] LABS: Alanine Aminotransferase 16 U/L (0-33); Alkaline Phosphatase 82 U/L (35-105); Aspartate Amino Transferase 24 U/L (0-32); Blood Urea Nitrogen 16 mg/dL (8-23); Calcium 9.8 mg/dL (8.5-10.5); Carbon Dioxide 26 mmol/L (22-29); Chloride 103 mmol/L (98-107); Creatinine Clr Calc Pharmacy 60.5756; Globulin 2.7 g/dL (1.3-4.6); Glucose 104 mg/dL (65-115); Osmolality Calculated 289 mOsm/kg (285-295); Sodium 139 mmol/L (136-145); Total Bilirubin 0.4 mg/dL (0.15-1.2); Total Protein 6.7 g/dL (6.6-8.7)
[2022-07-28 14:01] VITALS: BP 124/62; PULSE 76; RESP 16; O2SAT 95
[2022-07-28 14:45] VITALS: BP 81/66; PULSE 82; RESP 18; O2SAT 94
== END 2022-07-28 15:22 | disposition home or self-care (01) ==
PROVIDERS: Emergency Provider Family Medicine; PCP Nurse Practitioner Family
DX: K52.9 Noninfective gastroenteritis and colitis, unspecified (principal); Z79.82 Long term (current) use of aspirin; F17.210 Nicotine dependence, cigarettes, uncomplicated; I25.10 Atherosclerotic heart disease of native coronary artery without angina pectoris; J44.9 Chronic obstructive pulmonary disease, unspecified; I11.0 Hypertensive heart disease with heart failure; I50.30 Unspecified diastolic (congestive) heart failure; E78.5 Hyperlipidemia, unspecified; I25.2 Old myocardial infarction
CPT/HCPCS: 36415; 80053; 85025; 96361; 96374; 99284; J2765; J7030

== ENCOUNTER → 2022-09-03 10:12 | Outpatient (BNVA) | payer MEDICARE, MEDICAID, SELFPAY | PROVIDERS: PCP Nurse Practitioner Family; Visit Provider Internal Medicine Pulmonary Disease | DX: J44.9 Chronic obstructive pulmonary disease, unspecified (principal); F17.210 Nicotine dependence, cigarettes, uncomplicated; Q85.9 Phakomatosis, unspecified | CPT/HCPCS: 99214 ==

== ENCOUNTER → 2022-09-24 11:21 | Outpatient (BNVA) | payer MEDICARE, MEDICAID, SELFPAY | PROVIDERS: PCP Nurse Practitioner Family; Visit Provider Nurse Practitioner Family | DX: R35.0 Frequency of micturition (principal); L81.9 Disorder of pigmentation, unspecified; I50.30 Unspecified diastolic (congestive) heart failure; I10 Essential (primary) hypertension; R05.9 Cough, unspecified; R06.02 Shortness of breath; J06.9 Acute upper respiratory infection, unspecified | CPT/HCPCS: 80053; 81000; 83880 ==

== ENCOUNTER → 2022-10-07 10:27 | Outpatient (BNVA) | payer MEDICARE, MEDICAID, SELFPAY | PROVIDERS: PCP Nurse Practitioner Family; Visit Provider Anesthesiology Pain Medicine | DX: M51.36 Other intervertebral disc degeneration, lumbar region (principal); M51.16 Intervertebral disc disorders with radiculopathy, lumbar region; M47.816 Spondylosis without myelopathy or radiculopathy, lumbar region | CPT/HCPCS: 99213; 99214 ==

== ENCOUNTER → 2022-10-13 15:42 | Outpatient (BNVA) | payer MEDICARE, MEDICAID, SELFPAY | PROVIDERS: PCP Nurse Practitioner Family; Visit Provider Internal Medicine | DX: I11.0 Hypertensive heart disease with heart failure (principal); I50.30 Unspecified diastolic (congestive) heart failure; Z95.5 Presence of coronary angioplasty implant and graft; E78.5 Hyperlipidemia, unspecified; I25.10 Atherosclerotic heart disease of native coronary artery without angina pectoris; J44.9 Chronic obstructive pulmonary disease, unspecified; F17.210 Nicotine dependence, cigarettes, uncomplicated; I25.2 Old myocardial infarction; Z79.82 Long term (current) use of aspirin | CPT/HCPCS: 99214 ==

== ENCOUNTER → 2022-10-15 12:45 | Outpatient (BNVA) | payer MEDICARE, MEDICAID, SELFPAY | PROVIDERS: PCP Nurse Practitioner Family; Referring Provider Nurse Practitioner Family; Visit Provider Dermatology | DX: L57.0 Actinic keratosis (principal); D23.62 Other benign neoplasm of skin of left upper limb, including shoulder; L85.3 Xerosis cutis; L81.4 Other melanin hyperpigmentation; L57.8 Other skin changes due to chronic exposure to nonionizing radiation | CPT/HCPCS: 17000; 17003; 99203 ==

== ENCOUNTER → 2022-12-24 14:46 | Outpatient (BNVA) | payer MEDICARE, MEDICAID, SELFPAY | PROVIDERS: PCP Nurse Practitioner Family; Visit Provider Nurse Practitioner Family | DX: I50.30 Unspecified diastolic (congestive) heart failure (principal); I10 Essential (primary) hypertension | CPT/HCPCS: 80053; 83880 ==

== ENCOUNTER → 2023-01-01 09:27 | Outpatient (BNVA) | payer MEDICARE, MEDICAID, SELFPAY | PROVIDERS: PCP Nurse Practitioner Family; Visit Provider Nurse Practitioner Family | DX: I50.30 Unspecified diastolic (congestive) heart failure (principal); Z79.899 Other long term (current) drug therapy | CPT/HCPCS: 84132 ==

== ENCOUNTER → 2023-01-27 16:47 | Outpatient (BNVA) | payer MEDICARE, MEDICAID, SELFPAY | PROVIDERS: PCP Nurse Practitioner Family; Visit Provider Internal Medicine | DX: I10 Essential (primary) hypertension (principal); I25.10 Atherosclerotic heart disease of native coronary artery without angina pectoris; J44.0 Chronic obstructive pulmonary disease with (acute) lower respiratory infection; I50.30 Unspecified diastolic (congestive) heart failure | CPT/HCPCS: 36415; 80048; 83880; 99214 ==

== ENCOUNTER 2023-02-05 08:33 | Outpatient (CLI) | payer MEDICARE, MEDICAID, SELFPAY ==
--- NOTE | 2023-02-05 08:45 | USCV_ITS ---
Kristel Son Age: 77 Gender: F : 1945 Exam Date: 02/05/2023 09:01 Ordering Phys: Dave Del Toro M.D ([email or web address]) Technologist: Elizabeth Holland Exam Location: [facility] – [place] Indication: CP, SOB BP: 120 / 60 HR: 79 Rhythm: Sinus Technical Quality: Good MEASUREMENTS (Male / Female) Normal Values 2D ECHO LV Diastolic Diameter PLAX 3.8 cm 4.2 - 5.9 / 3.9 - 5.3 cm LV Systolic Diameter PLAX 2.4 cm IVS Diastolic Thickness 1.4 cm 0.6 - 1.0 / 0.6 - 0.9 cm IVS Systolic Thickness 1.9 cm LVPW Diastolic Thickness 1.4 cm 0.6 - 1.0 / 0.6 - 0.9 cm LVPW Systolic Thickness 2.1 cm LVOT Diameter 2.0 cm LV Ejection Fraction 2D Teich 68.7 % LV Ejection Fraction MOD 2C 71.1 % LV Ejection Fraction 2C AL 73.0 % LA Diameter 3.1 cm LA Width 3.3 cm LA Height 4.8 cm RA Width 3.0 cm RA Height 3.5 cm Aorta at Sinotubular Diameter 2.5 cm IVC Diameter 1.6 cm M-MODE Aortic Annulus Diameter 2.9 cm LA Ao Ratio MM 1.2 MV E Point Septal Separation 0.4 cm DOPPLER AV Peak Velocity 142.0 cm/s LVOT Peak Velocity 105.7 cm/s AV Area Cont Eq vti 2.8 cm squared AV Area Cont Eq pk 2.5 cm squared MV Area PHT 4.1 cm squared Mitral E to A Ratio 0.8 MV E' Velocity 40.0 cm/s Mitral E to MV E' Ratio 10.3 Mitral E to LV E' Lateral Ratio 10.6 Mitral E to LV E' Septal Ratio 10.0 TR Peak Velocity 200.5 cm/s TR Peak Gradient 16.1 mmHg Right Atrial Pressure 5.0 mmHg Pulmonary Artery Systolic Pressu 21.1 mmHg PV Peak Velocity 96.0 cm/s RV Acceleration Time 0.1 s RV Ejection Time 0.3 s RV AcT/ET 0.2 FINDINGS Left Ventricle Left ventricle is normal in size. LV systolic function is normal with EF 55 to 60%. No regional wall motion abnormalities are seen. Grade 1 diastolic dysfunction Right Ventricle Normal in size and function Right Atrium Normal in size Left Atrium Normal in size Mitral Valve Mild mitral annular calcification. Trace mitral regurgitation. Aortic Valve Structurally normal aortic valve. No significant stenosis or regurgitation. Tricuspid Valve Trace tricuspid regurgitation. Pulmonary artery systolic pressure is normal. Pulmonic Valve Not well visualized Pericardium Normal Aorta Normal in size IVC Appears to be normal CONCLUSIONS LV systolic function is normal with EF 55 to 60%. Grade 1 systolic dysfunction Trace mitral regurgitation Trace tricuspid regurgitation Compared to prior echocardiogram from 2019, patient has trace mitral regurgitation and tricuspid regurgitation. Dave Del Toro MD (Electronically Signed) Final Date: 18 February 2023 09:30 S
== END 2023-02-05 08:34 | disposition home or self-care (01) ==
PROVIDERS: PCP Nurse Practitioner Family; Visit Provider Internal Medicine
DX: I50.30 Unspecified diastolic (congestive) heart failure (principal); I08.1 Rheumatic disorders of both mitral and tricuspid valves
CPT/HCPCS: 93306

== ENCOUNTER 2023-02-12 06:38 | Outpatient (CLI) | payer MEDICARE, MEDICAID, SELFPAY ==
--- NOTE | 2023-02-12 | ECG_ITS ---
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 Interpretive Statements NAME OF STUDY: LEXISCAN SESTAMIBI STRESS TEST INDICATION: [Chest Pain] Procedure: At the baseline, the blood pressure was 140/73 mmHg with a heart rate of 76 bpm. The electrocardiogram showed normal sinus rhythm, normal axis with normal ST and T's. The Lexiscan was infused over a period of 20 seconds. A total of 0.4 mg of Lexiscan was infused. The stress phase was continued for a total of 5 minutes. Heart rate was at the end of stress phase was 92 bpm and a blood pressure of 135/58 mmHg. The EKG at the peak infusion revealed normal sinus rhythm with no significant ST-T wave changes. Sestamibi was injected 20 seconds after the Lexiscan infusion. Blood pressure at the end of recovery phase was 128/54 mmHg with a heart rate of 86 bpm. Conclusion: 1. Normal EKG response to Lexiscan infusion 2. No Lexiscan induced chest pain or cardiac arrhythmia. 3. Normal blood pressure and heart rate response. 4. Sestamibi/sestamibi perfusion scan pending; see separate report. Electronically Signed On 03-04-2023 14:45:25 CDT by Dave Del Toro M.D. [id number]
[2023-02-12 06:44] VITALS: BMI 31.6
--- NOTE | 2023-02-12 06:46 | NMCV_ITS ---
NM césar perf SPECT r/s* [id number] Kristel Son Age: 77 Gender: F : 1945 Exam Date: 02/12/2023 08:14 Ordering Phys: Dave Del Toro M.D ([email or web address]) Technologist: CINTHYA Lopez Exam Location: [facility] Indications: ATHEROSCLEROTIC HEART DISEASE STRESS TEST Please see separate stress test report in [facility] for full findings IMAGE PROTOCOL Rest/Stress 1 Lexiscan Day Radiopharmaceutical Dose (mCi) Administration Site Administered by Rest: Tc-99m 10.8 IV Steffen Mendenhall, CLINICAL LAB ASSISTANT Sestamibi Stress:Tc-99m 32.8 IV Steffen Mendenhall, CLINICAL LAB ASSISTANT Sestamibi Rest: 02/12/2023 60 Discovery 630 Stress: 02/12/2023 30 Discovery 630 0.4mg Lexiscan. Supine position only as patient was unable to lay prone. SPECT RESULTS Technical Quality: Excellent Raw Data Analysis: Normal Image Corrections: No attenuation or motion correction applied Summed Stress Score: 11 Summed Rest Score: 8 Summed Difference Score: 4 PERFUSION FINDINGS There is a large sized partially reversible perfusion defect seen in inferolateral wall. This is consistent with a large sized prior infarct with significant aris-infarct ischemia in left circumflex artery territory. There is medium sized area of reversible perfusion defect seen in inferior wall. This is consistent with medium sized area of ischemia in RCA territory. FUNCTIONAL RESULTS (calculated via Gated SPECT) Stress Image LV EF (%): 61 Stress EDV (mL):94 TID: 0.94 Stress ESV (mL):37 FUNCTIONAL FINDINGS: There is normal left ventricular systolic function. IMPRESSIONS 1. Abnormal myocardial perfusion imaging with large area of prior infarct with significant aris-infarct ischemia in the left circumflex artery territory. 2. Medium sized area of ischemia seen in RCA territory. 3. LV systolic function is normal. Dave Del Toro MD (Electronically Signed) Final Date: 12 February 2023 18:09 S
[2023-02-12] MEDS: regadenoson 0.4 Mg/5 ml Syringe IVP (08:55)
[2023-02-12 09:26] VITALS: BP 128/54; PULSE 91
== END 2023-02-12 06:39 | disposition home or self-care (01) ==
LOC: CDL 06:39
PROVIDERS: PCP Nurse Practitioner Family; Visit Provider Internal Medicine
DX: R07.9 Chest pain, unspecified (principal); I25.9 Chronic ischemic heart disease, unspecified
CPT/HCPCS: 36415; 78452; 93017; 96374; A9500; J2785

== ENCOUNTER 2023-03-05 10:15 | Observation (INO) | payer MEDICARE, MEDICAID, SELFPAY ==
[2023-03-04 10:19] VITALS: BP 134/91; PULSE 83
[2023-03-04 10:49] VITALS: BP 159/59; PULSE 72
[2023-03-04 11:19] VITALS: BP 133/66; PULSE 79
[2023-03-05] MEDS: diphenhydrAMINE 50 mg Capsule PO (07:45)
[2023-03-05 08:01] LABS: Basophils # 0.1 10^3/uL (0.0-0.1); Basophils % 0.8 %; Eosinophils # 0.4 10^3/uL (0.0-0.8); Eosinophils % 6.1 %; Hematocrit 40.4 % (36-47); Lymphocytes # 1.8 10^3/uL (0.8-4.8); Lymphocytes % 25.5 %; Mean Corpuscular HGB Conc 32.2 g/dL (30-55); Mean Corpuscular Hemoglobin 30.6 pg (27-33); Mean Corpuscular Volume 95.1 fl (85-98); Mean Platelet Volume 11.5 fL (7.4-10.4); Monocytes # 0.7 10^3/uL (0.2-0.9); Monocytes % 9.7 %; Neutrophils # 4.15 10^3/uL (1.8-7.7); Neutrophils % 57.6 %; Nucleated Red Blood Cells % 0 %; Platelet Count 211 10^3/cmm (157-399); Red Blood Count 4.25 10^6/uL (3.85-5.65); Red Cell Distribution Width 13.2 % (12.1-15.1); White Blood Count 7.21 10^3/uL (3.29-11.43)
[2023-03-05 08:08] VITALS: BMI 31.6
[2023-03-05 08:15] VITALS: BP 139/79; PULSE 73; RESP 18; TEMP 36.7; O2SAT 93
[2023-03-05 08:17] LABS: Anion Gap 11.8 (5-19); Blood Urea Nitrogen 14 mg/dL (8-23); Calcium 10.4 mg/dL (8.5-10.5); Carbon Dioxide 31 mmol/L (22-29); Chloride 104 mmol/L (98-107); Creatinine Clr Calc Pharmacy 59.5955; Glucose 103 mg/dL (65-115); Osmolality Calculated 297 mOsm/kg (285-295); Potassium 3.8 mmol/L (3.5-5.1); Sodium 143 mmol/L (136-145)
--- NOTE | 2023-03-05 08:30 | XACV_ITS ---
Exam Room: [facility] Ht: 163 cm Wt: 83 kg BSA: 1.97 m2 Gender: Female : 1945 Any Known Allergies: Other Exam Priority: Routine Procedure(s): Procedure Description: Diagnostic procedure Procedure Description: Left Heart Catheterization Procedure Description: Miscellaneous Procedure Description: Angio-Seal Procedure Description: Coronary Angiography Diagnostic Cath Status: Elective Diagnostic Findings * INDICATION: 77-year-old woman with past medical history of CAD who has been having on and off chest discomfort episodes. The stress test was performed that is abnormal. Plan for coronary angiogram with possible percutaneous coronary intervention. * Left Main has no significant disease. * Left Anterior Descending has mild luminal irregularities. * Circumflex has mild luminal irregularities. * Distal Right Coronary Artery has 2 tandem 40% lesions. * Coronary angiography shows right dominance. Interventional Findings * PROCEDURE DETAIL: We engaged RCA with JR4 guide catheter. IV heparin was administered to maintain anticoagulation. After normalization, we advanced the iFR wire distal to the stenosis. iFR was performed and we got a value of 0.97. As it was non-ischemic final angiogram was performed. Guide catheter was removed. Patient left the clinical laboratory medical director in a stable condition. . Conclusions 1. Moderate distal RCA stenoses s/p iFR that was non-ischemic. Medical therapy. Recommendations * Aggressive risk factor modification. * Outpatient cardiology follow up in 4 weeks. Interventional RX Recommendation: medical therapy and/or counseling Anticoagulation: Heparin Pressures Phase:Rest AO : 98 / 61 ( 79 ) @ 10:13:00 AM 91 / 46 ( 68 ) @ 10:22:00 AM 128 / 79 ( 97 ) @ 10:38:00 AM 146 / 63 ( 100 ) @ 10:46:00 AM 123 / 59 ( 87 ) @ 10:49:00 AM 164 / 64 ( 108 ) @ 10:54:00 AM 164 / 64 ( 108 ) @ 10:54:00 AM LV : 158 / -12 / 16 @ 10:54:00 AM 161 / -12 / 16 @ 10:54:00 AM Valves Phase:DefaultPhase AV : 0.0 @ 9:31:52 AM 0.0 @ 9:31:52 AM AV Mean Gradient: 0.0 @ 9:31:52 AM 0.0 @ 9:31:52 AM Clinical Evaluation EBL: 5mL-10mL Procedural Details Procedure Consent Obtained. Pre-Procedure Time Out. Identified patient by full name and date of as verbalized by the patient/guarantor. Does the consent match the physician's order: Yes. Accurate & Complete Informed Consent: Yes. Inpatient/Outpatient History & Physical on Chart: Yes. If H&P is completed, is and addenduem needed: No. Visualize and Verify Site with Patient/Guarantor: N/A. Relevant Radiology Images available: Yes. The risks, benefits, and alternatives of sedation and/or procedure were discussed by physician. The patient agrees to continue. Procedure started. [facility] Clinical Fraility Score: 3: Managing Well. Musculoskeletal Physician Indications: New Onset Angina/Abnormal stress test/CP. Chest Pain Symptom Assessment: Typical Angina Symptoms. Cardiovascular Instability: No. Correct patient, site and procedure confirmed by cath team. PERRLA. Strong, equal hand instructional manager bilaterally. Lungs clear x 5 lobes. IV Site on Arrival: 20 gauge in the left anticubital. IV Fluids: 0.9% NaCl at KVO. 0 mL infused prior to clinical laboratory medical director. Pre Procedural Pulses: bilateral dorsalis pedis was 1+. Pre Procedural Pulses: bilateral posterior tibial was 1+. Pre Procedural Pulses: bilateral radial was 3+. Oxygen started at 2liters/min via nasal canula. right groin was prepped with chloroprep then draped in the usual sterile fashion. right radial was prepped with chloroprep then draped in the usual sterile fashion. Physician notified. Patient's family in CPRU room #2. Dr. Del Toro will update at the completion of the procedure. Equipment: 5F - Radial. Cardiac Cath Pack. ACIST Manifold Kit Model BT 2000. Heparinized Saline (2 units/mL), 1000 mL bag. Inventory is [employer] 5Fr [facility]. Physician arrived. Baseline sample Acquired. HR: 65 BPM. Physician scrubbed in. Immediate Pre-Procedure Time Out. Correct Patient: Yes; Correct Procedure: Yes; Correct Site: Yes; Correct Patient Position: Yes; Correct Supplies: Yes; Dried Flammable Prep: Yes; Blood Products Available: N/A;. Lidocaine 1% infiltrated to the right radial. Arterial access obtained. A 5 mongolian TIG catheter in over the exchange J wire. Multiple views taken of left coronary artery. Catheter redirected to the RCA, unable to cannulate. Catheter removed over the exchange J wire. A 5 mongolian JR4 catheter in over the exchange J wire. Multiple views taken of right coronary artery. Catheter removed over the exchange J wire. A 5 mongolian JL 3.5 catheter in over the exchange J wire. Catheter removed over the exchange J wire. Unable to get optimal cineography, will move to femoral access. A TR Band was successful obtaining hemostatsis at the Right Radial artery insertion site. Lidocaine 1% infiltrated to the right groin. Arterial access obtained with micropuncture set. A 5 mongolian JL4 catheter in over the exchange J wire. Multiple views taken of right coronary artery. Catheter removed over the exchange J wire. Sheath upsized to a 6 Fr. 6 mongolian JR 4 guide catheter was inserted over the standard J wire. iFR guidewire was advanced through the guide catheter to lesion in the distal RCA. iFR spot measurement of the mid-distal RCA 0.97 with a pullback of 0.97. Guide catheter out over the standard J wire. A 5 mongolian Angled Pig catheter in over the standard J wire. EDP Sample taken: LV 158/-13,16; HR: 90 BPM; SpO2: 98%. Pullback taken: LV 161/-13,16; AO 164/64(108); Mean: 0mmHg, Peak to Peak: 0mmHg, SEP: 21sec/min; HR: 88 BPM; SpO2: 99%. Catheter removed over the standard J wire. A Right femoral angiogram was performed to determine safe placement of closure device. A Angio-Seal VIP ([facility]) was successful obtaining hemostatsis at the Right Femoral artery insertion site. Angioseal placed without complications. No signs or symptoms of hematoma noted. Sterile dressing applied per usual sterile fashion. Lot #[id number]. Exp 2023-07-29. Dr. Del Toro scrubbed out. Post Procedure: Pulses reassessed and unchanged. PERRLA. Strong, equal hand instructional manager bilaterally. No VTE prophylaxis required. Medication's Wasted: Nitro = 49.8 mg. Medication's Wasted: Heparin = 4000 Units. Medication's Wasted: Other = Fentanyl 50 mcg. Total IV fluids: 68 mL. Post-op diagnosis: Moderate RCA stenosis/Non obstructive CAD. Complications: none. Estimated blood loss: 5mL-10mL. Responsiveness - Normal response to verbal stimuli; alert and oriented, PERRLA. Airway - Unaffected, no intervention required; spontaneous ventilation. Circulation: W/N/L, pulses unchanged. Nausea/Vomiting: No. Procedure completed. Patient transferred by bed to ICU. Vital chart was stopped. Procedure started. Procedure started. Access Site Site: Right Radial artery Sheath Size: 5 Fr Hemostasis Method: TR Band Hemostasis Success: Successful Site: Right Femoral artery Sheath Size: 5 Fr Hemostasis Method: Angio-Seal VIP ([facility]) Hemostasis Success: Successful Procedure Medications Start: 9:05 AM Stop: 9:05 AM Medication: Versed Amount: 1 mg Route: I.V. Start: 9:05 AM Stop: 9:05 AM Medication: Fentanyl Amount: 50 mcg Route: I.V. Start: 9:10 AM Stop: 9:10 AM Medication: Nitrogylcerin Amount: 200 mcg Route: I.A. Start: 9:13 AM Stop: 9:13 AM Medication: Heparin Amount: 5000 units Route: I.V. Start: 9:29 AM Stop: 9:29 AM Medication: Versed Amount: 1 mg Route: I.V. Start: 9:35 AM Stop: 9:35 AM Medication: Fentanyl Amount: 50 mcg Route: I.V. Start: 9:44 AM Stop: 9:44 AM Medication: Heparin Amount: 2000 units Route: I.V. Start: 9:56 AM Stop: 9:56 AM Medication: Fentanyl Amount: 25 mcg Route: I.V. Start: 9:56 AM Stop: 9:56 AM Medication: Fentanyl Amount: 25 mcg Route: I.V. I, the attending physician, have reviewed and verified all procedure medications. Yes, all medications given per verbal order History/Risk Factors Hypertension: Yes Dyslipidemia: Yes Peripheral Arterial Disease (PAD): No Myocardial Infarction (OR): No Obesity: Yes Renal Disease: No Tobacco Use: Current/Recent(w/in 1 year) Prior Interventions PCI: Yes CABG: No Valve Surgery: No Date of PCI: 09/30/2009 Report Signatures Finalized by Dave Del Toro MD on 03/21/2023 01:47 PM
--- NOTE | 2023-03-05 09:01 | P.HP_ITS ---
Same Day Surgery H&P Indication for Procedure/HPI DATE OF PROCEDURE: March 05, 2023 CHIEF COMPLAINT/INDICATIONFOR SURGICAL PROCEDURE: Chest pain/abnormal stress test PREOP DIAGNOSIS: Chest pain/abnormal stress test PLANNED PROCEDURE: Operation Date: 03/05/23 08:30 Proposed Procedures p [facility] [address]91,R94.39(Left) - Dave Del Toro M.D Possible percutaneous coronary intervention 77-year-old woman with past medical history of CAD who has been having on and off chest discomfort episodes. The stress test was performed that is abnormal. Plan for coronary angiogram with possible percutaneous coronary intervention Medications/Allergies* Home Medications Medication Instructions Recorded Confirmed Type aspirin 81 mg tablet,delayed 81 mg PO DAILY 08/23/19 03/05/23 History release (Aspir-Low) cholecalciferol (vitamin D3) 50 2,000 unit PO DAILY 08/23/19 03/05/23 History mcg/drop (2,000 unit/drop) oral drops acetaminophen 650 mg 650 mg PO TID 01/30/21 03/05/23 History tablet,extended release (Tylenol Arthritis Pain) Allergies/Adverse Reactions Allergy/AdvReac Type Severity Reaction Status Date / Time meloxicam Allergy Intermediate could not Verified 03/05/23 07:40 breath well Current Medications: Generic Name Dose Route Start Last Admin Trade Name Freq PRN Reason Stop Dose Admin Sodium Chloride 1,000 mls @ 50 mls/hr 03/05/23 07:30 03/05/23 08:13 Sodium Chloride 0.9% IV 03/06/23 03:29 Not Given .Q20H ONE Pertinent History/Comorbid Conditions* Medical History (Updated 01/01/23 @ 09:14 by WALLY Bhatti) CAD (coronary artery disease) Chronic obstructive airway disease Constipation Diastolic congestive heart failure Dyslipidemia History of colon polyps History of umbilical hernia Hypertension Myocardial infarct Venous insufficiency Surgical History (Updated 01/19/20 @ 09:49 by Heriberto Alonso MD) History of coronary artery stent placement History of laparoscopic cholecystectomy Status post colonoscopy (01/19/20) severe diverticulosis : sigmoid colon Family History (Updated 09/02/19 @ 10:12 by Reno Liang) Cancer Denies family history of Diabetes Anesthesia complication Bleeding disorder Social History Smoking and tobacco status: current every day smoker cigarettes Years cigarettes smoked: 62 [ Other cigarette details: 1 PPD Hx x 40 Years] Quit status (tobacco): considering quitting Second hand smoke exposure: Yes Smoking risk assessment/counseling performed?: Yes Alcohol intake: never Counseling given: No Substance/Drug Use: never Counseling given: No Lives independently: Yes Household members: family Marital status: / Current occupational status: retired Do you think of yourself as: Straight/Heterosexual Current gender identity: Female Pertinent Exam Findings alert, oriented x 3, clear to auscultation bilaterally and regular rate & rhythm Conscious Sedation Assessment PATIENT ASSESSED PRIOR TO SEDATION, WITH NO CHANGE NOTED: Yes AIRWAY EVAL/ANESTHESIA PLAN: normal airway, see other exam findings, ASA III, Local Anesthesia, Risks, benefits & alternatives of sedation and/or procedure discussed and Patient agrees to continue as planned ADDITIONAL INFORMATION: Moderate sedation Recommendations Surgery/Procedure today (Left heart cath with possible percutaneous coronary intervention) Coding Level of Care Code Acute Code for Chg Fwd Diagnoses
== END 2023-03-05 18:00 | disposition home or self-care (01) ==
LOC: ICU 10:15
PROVIDERS: Admitting Provider Internal Medicine; PCP Nurse Practitioner Family; Visit Provider Internal Medicine
DX: I25.10 Atherosclerotic heart disease of native coronary artery without angina pectoris (principal); E78.5 Hyperlipidemia, unspecified; E66.9 Obesity, unspecified; Z68.31 Body mass index [BMI] 31.0-31.9, adult; Z79.82 Long term (current) use of aspirin; J44.9 Chronic obstructive pulmonary disease, unspecified; I11.0 Hypertensive heart disease with heart failure; I50.30 Unspecified diastolic (congestive) heart failure; I25.2 Old myocardial infarction
CPT/HCPCS: 36415; 80048; 85025; 93458; 93571; 96361; 96365; 96367; 99152; 99153; C1760; C1769; C1887; C1894; G0378; J1644; J2250; J3010; J3490; J7030; Q0163; Q9967

== ENCOUNTER → 2023-03-23 09:49 | Outpatient (BNVA) | payer MEDICARE, MEDICAID, SELFPAY | PROVIDERS: PCP Nurse Practitioner Family; Visit Provider Anesthesiology Pain Medicine | DX: M51.36 Other intervertebral disc degeneration, lumbar region; M51.16 Intervertebral disc disorders with radiculopathy, lumbar region; M47.816 Spondylosis without myelopathy or radiculopathy, lumbar region; I25.10 Atherosclerotic heart disease of native coronary artery without angina pectoris; F17.210 Nicotine dependence, cigarettes, uncomplicated | CPT/HCPCS: 36415; 99213; 99214 ==

== ENCOUNTER → 2023-04-13 09:12 | Outpatient (BNVA) | payer MEDICARE, MEDICAID, SELFPAY | PROVIDERS: PCP Nurse Practitioner Family; Visit Provider Internal Medicine Pulmonary Disease | DX: J44.9 Chronic obstructive pulmonary disease, unspecified (principal); R91.1 Solitary pulmonary nodule; F17.210 Nicotine dependence, cigarettes, uncomplicated; K11.9 Disease of salivary gland, unspecified | CPT/HCPCS: 99214 ==

== ENCOUNTER → 2023-09-08 12:20 | Outpatient (BNVA) | payer MEDICARE, MEDICAID, SELFPAY | PROVIDERS: PCP Nurse Practitioner Family; Visit Provider Internal Medicine | DX: I11.0 Hypertensive heart disease with heart failure (principal); I50.30 Unspecified diastolic (congestive) heart failure; Z95.5 Presence of coronary angioplasty implant and graft; E78.5 Hyperlipidemia, unspecified; I25.10 Atherosclerotic heart disease of native coronary artery without angina pectoris; J44.9 Chronic obstructive pulmonary disease, unspecified; F17.210 Nicotine dependence, cigarettes, uncomplicated | CPT/HCPCS: 99214 ==

== ENCOUNTER → 2023-09-29 09:10 | Outpatient (BNVA) | payer MEDICARE, MEDICAID, SELFPAY | PROVIDERS: PCP Nurse Practitioner Family; Visit Provider Anesthesiology Pain Medicine | DX: M51.36 Other intervertebral disc degeneration, lumbar region; M51.16 Intervertebral disc disorders with radiculopathy, lumbar region; M47.816 Spondylosis without myelopathy or radiculopathy, lumbar region; M48.061 Spinal stenosis, lumbar region without neurogenic claudication | CPT/HCPCS: 99213 ==

== ENCOUNTER → 2023-10-15 09:12 | Outpatient (BNVA) | payer MEDICARE, MEDICAID, SELFPAY | PROVIDERS: PCP Nurse Practitioner Family; Visit Provider Internal Medicine Pulmonary Disease | DX: J43.2 Centrilobular emphysema (principal); R91.1 Solitary pulmonary nodule; F17.210 Nicotine dependence, cigarettes, uncomplicated; J44.9 Chronic obstructive pulmonary disease, unspecified | CPT/HCPCS: 99214 ==

== ENCOUNTER 2023-11-20 14:55 | Outpatient (CLI) | payer MEDICARE, MEDICAID, SELFPAY ==
[2023-11-20 15:13] LABS: Basophils # 0.1 10^3/uL (0.0-0.1); Basophils % 0.8 %; Eosinophils # 0.5 10^3/uL (0.0-0.8); Eosinophils % 6.2 %; Hematocrit 40.1 % (36-47); Lymphocytes # 2.2 10^3/uL (0.8-4.8); Lymphocytes % 28.2 %; Mean Corpuscular HGB Conc 32.7 g/dL (30-55); Mean Corpuscular Hemoglobin 30.9 pg (27-33); Mean Corpuscular Volume 94.6 fl (85-98); Monocytes # 0.7 10^3/uL (0.2-0.9); Monocytes % 8.7 %; Neutrophils # 4.31 10^3/uL (1.8-7.7); Nucleated Red Blood Cells % 0 %; Platelet Count 186 10^3/cmm (157-399); Red Blood Count 4.24 10^6/uL (3.85-5.65); Red Cell Distribution Width 12.8 % (12.1-15.1)
[2023-11-20 15:34] LABS: Alanine Aminotransferase 25 U/L (0-33); Albumin Level 3.9 g/dL (3.5-5.2); Alkaline Phosphatase 89 U/L (35-105); Anion Gap 10.2 (5-19); Aspartate Amino Transferase 29 U/L (0-32); Blood Urea Nitrogen 10 mg/dL (8-23); Calcium 10.7 mg/dL (8.5-10.5); Carbon Dioxide 28 mmol/L (22-29); Chloride 103 mmol/L (98-107); Globulin 2.8 g/dL (1.3-4.6); Glucose 83 mg/dL (65-115); Lipase 45 U/L (13-60); Osmolality Calculated 282 mOsm/kg (285-295); Potassium 4.2 mmol/L (3.5-5.1); Sodium 137 mmol/L (136-145); Total Bilirubin 0.4 mg/dL (0.15-1.2); Total Protein 6.7 g/dL (6.6-8.7)
== END 2023-11-20 14:56 | disposition home or self-care (01) ==
LOC: LAB 14:59
PROVIDERS: PCP Nurse Practitioner Family; Visit Provider Nurse Practitioner Family
DX: R10.9 Unspecified abdominal pain (principal)
CPT/HCPCS: 36415; 80053; 81000; 83690; 85025

== ENCOUNTER 2023-11-26 16:37 | Outpatient (CLI) | payer MEDICARE, MEDICAID, SELFPAY ==
--- NOTE | 2023-11-26 17:30 | CT_ITS ---
WS: [id number] CT ABDOMEN AND PELVIS WITH CONTRAST HISTORY: R10.9 - Unspecified abdominal pain TECHNIQUE: Imaging performed of the abdomen and pelvis with IV contrast. Single phase imaging of the abdomen. Coronal and sagittal reformats are submitted. All CT scans at [facility] use at ar st one of these dose optimization techniques: automated exposure control; mA and/or kV adjustment per patient size (includes targeted exams where dose is matched to clinical indication); or iterative re construction. IV CONTRAST: Omnipaque 350; 100 mL IV. Oral contrast: Yes. DLP: 531.44 mGy.cm COMPARISON: 04/22/2022 Lower thorax: Benign granuloma RIGHT lung base. No pneumonia. Mild cardiomegaly. Small hiatal hernia. Liver/biliary system: Normal size liver with scattered granulomata. Normal portal vein. Gallbladder: Prior cholecystectomy. Pancreas: Normal size pancreas and pancreatic duct. No adjacent inflammation. Spleen: Low-attenuation cystic mass in the anterior spleen measures 4.6 x 5.5 cm. This mass has been previously described and probably represents a splenic cyst. No significant enhancement. Additional s plenic granulomata. Adrenal glands: Mild thickening of the LEFT adrenal gland. RIGHT adrenal gland negative. Neither adre nal gland has changed. Right kidney: Mild cortical thinning. There are a few too small to characterize cortical hypodensitie s. There is no obstruction. Left kidney: Mild cortical thinning with a few scattered cortical hypodensities which are too small t o characterize. No solid mass. Aorta: Mild atherosclerosis with no aneurysm. Lymphadenopathy: None. Free fluid: None. GI tract: Normally distended stomach. No small bowel obstruction. Appendix is not definitely identifi ed but there is no evidence for acute appendicitis. Marked increased fecal material throughout the en tire colon. Greatest fecal burden in the cecum. No obstructive pattern or wall thickening. Increasing diverticular burden beginning at the splenic flexure through the sigmoid colon. Numerous diverticula in the sigmoid colon with mild chronic appearing wall thickening. No acute diverticulitis. Abdominal wall: Unremarkable abdominal wall. No hernia. Pelvis: No free fluid or adenopathy within the pelvis. LEFT adnexal ovarian cyst is reidentified kylah uring 3.4 x 2.3 cm. Cyst has been described on prior examinations with slight increase in size. No so lid component identified. Uterus is absent. Bones: Increase in the lumbar lordosis with scoliosis. CT/CT abdomen pelvis w con* [id number] IMPRESSION: 1. Distal colon diverticulosis with increasing diverticular burden in the sigm oid. There is mild chronic wall thickening but no obstruction or acute divertic ulitis. 2. Diffuse constipation, greatest involving the cecum. No obstruction. 3. Prior cholecystectomy and hysterectomy. 4. Stable splenic cyst. 5. No ascites or adenopathy.
[2023-11-26] MEDS: iohexol 300 mg/mL 100 mL Btl IV (17:57)
[2023-11-26] MEDS: iohexol 300 mg/mL 100 mL Btl PO (17:57)
== END 2023-11-26 16:38 | disposition home or self-care (01) ==
LOC: RAD 16:37
PROVIDERS: PCP Nurse Practitioner Family; Visit Provider Nurse Practitioner Family
DX: K57.30 Diverticulosis of large intestine without perforation or abscess without bleeding (principal); D73.4 Cyst of spleen; Z90.710 Acquired absence of both cervix and uterus; Z90.49 Acquired absence of other specified parts of digestive tract
CPT/HCPCS: 74177; Q9967

== ENCOUNTER 2023-12-18 13:59 | Outpatient (CLI) | payer MEDICARE, MEDICAID, SELFPAY ==
--- NOTE | 2023-12-18 14:15 | US_ITS ---
WS: [id number] Exam: US pelvic complete* [id number] Date/Time of Exam: 12/18/2023 2:10 PM Reason For Exam: N83.209 - Unspecified ovarian cyst, unspecified side The uterus is surgically absent. There was no evidence of a pelvic mass or abnormal free fluid collec tion. The RIGHT ovary is not localized with any degree of certainty. There is a 3 cm simple cyst in t he LEFT ovary. The the LEFT ovarian parenchyma is otherwise atrophic and difficult to visualize. US/US pelvic complete* [id number] IMPRESSION: 1. 3 cm simple cyst noted in the LEFT ovary. 2. The RIGHT ovary is not identified within degree of certainty. 3. The uterus is surgically absent. No adnexal mass or abnormal free fluid rachel ection.
== END 2023-12-18 14:00 | disposition home or self-care (01) ==
LOC: RAD 13:59
PROVIDERS: PCP Nurse Practitioner Family; Visit Provider Nurse Practitioner Family
DX: N83.202 Unspecified ovarian cyst, left side (principal); Z90.710 Acquired absence of both cervix and uterus
CPT/HCPCS: 76856

== ENCOUNTER → 2024-06-07 12:21 | Outpatient (BNVA) | payer MEDICARE, MEDICAID, SELFPAY | PROVIDERS: PCP Nurse Practitioner Family; Visit Provider Internal Medicine | DX: I50.30 Unspecified diastolic (congestive) heart failure (principal); I11.0 Hypertensive heart disease with heart failure; E78.5 Hyperlipidemia, unspecified; I25.10 Atherosclerotic heart disease of native coronary artery without angina pectoris; Z95.5 Presence of coronary angioplasty implant and graft; J43.2 Centrilobular emphysema | CPT/HCPCS: 36415; 80048; 83880; 99214 ==

== ENCOUNTER 2024-07-22 09:53 | Outpatient (CLI) | payer MEDICARE, SELFPAY ==
--- NOTE | 2024-07-22 10:00 | USCV_ITS ---
Adelaida Kristel Age: 79 Gender: F : 1945 Exam Date: 07/22/2024 10:20 Ordering Phys: Dave Del Toro M.D ([email or web address]) Technologist: CT Exam Location: [facility] [place] Indication: BP: 138 / 70 HR: 71 Rhythm: Sinus Technical Quality: Adequate MEASUREMENTS (Male / Female) Normal Values 2D ECHO LVOT Diameter 2.0 cm LV Ejection Fraction MOD 4C 69.6 % LV Ejection Fraction MOD 2C 60.4 % LV Ejection Fraction 2C AL 61.0 % LA Diameter 2.7 cm RA Systolic Volume 4C AL 45.6 ml RA Systolic Volume 4C MOD 46.1 ml LA Sys Volume AL 70.1 cm cubed LA Sys Volume Index AL 35.0 cm cubed/m squared Aorta at Sinotubular Diameter 2.0 cm IVC Diameter 1.7 cm M-MODE LA Ao Ratio MM 1.3 AV Cusp Separation MM 2.0 cm DOPPLER AV Peak Velocity 146.0 cm/s LVOT Peak Velocity 89.0 cm/s AV Area Cont Eq vti 2.3 cm squared AV Area Cont Eq pk 1.9 cm squared MV Peak Velocity 96.0 cm/s MV Area PHT 3.7 cm squared Mitral E to A Ratio 0.8 TV Peak Velocity 245.0 cm/s TR Peak Velocity 309.0 cm/s TR Peak Gradient 38.2 mmHg TR Mean Velocity 227.0 cm/s TR Mean Gradient 23.9 mmHg TR Velocity Time Integral 89.2 cm TV Peak E Velocity 74.0 cm/s PV Peak Velocity 118.0 cm/s FINDINGS Left Ventricle Ventricle is normal size. LV systolic function normal with EF of 55- 60%. No regional wall motion abnormalities are seen. Grade 1 diastolic dysfunction. Right Ventricle Normal in size and function Right Atrium Normal in size Left Atrium Normal in size Mitral Valve Mild mitral annular calcification. Mild mitral regurgitation. Aortic Valve Structurally normal aortic valve. No significant stenosis or regurgitation. Tricuspid Valve Mild tricuspid regurgitation. RVSP is 35 to 40 mmHg. This is consistent with mild pulmonary hypertension. Pulmonic Valve Not well visualized Pericardium Normal Aorta Normal in size IVC Appears to be normal CONCLUSIONS LV systolic function is normal with EF of 55 -60%. Grade 1 diastolic dysfunction. Mild mitral regurgitation Mild tricuspid regurgitation Mild pulmonary hypertension Compared to prior echocardiogram from 2022, no significant changes are seen. Dave Del Toro MD (Electronically Signed) Final Date: 23 July 2024 12:52 S
== END 2024-07-22 09:54 | disposition home or self-care (01) ==
LOC: RAD 09:55
PROVIDERS: PCP Nurse Practitioner Family; Visit Provider Internal Medicine
DX: R06.02 Shortness of breath (principal); I34.81 Nonrheumatic mitral (valve) annulus calcification; I34.0 Nonrheumatic mitral (valve) insufficiency; I07.1 Rheumatic tricuspid insufficiency; R93.1 Abnormal findings on diagnostic imaging of heart and coronary circulation; I27.20 Pulmonary hypertension, unspecified
CPT/HCPCS: 93306

== ENCOUNTER → 2024-09-27 10:33 | Outpatient (BNVA) | payer MEDICARE, SELFPAY | PROVIDERS: PCP Nurse Practitioner Family; Visit Provider Nurse Practitioner Family | DX: I48.91 Unspecified atrial fibrillation (principal); I50.30 Unspecified diastolic (congestive) heart failure; I25.10 Atherosclerotic heart disease of native coronary artery without angina pectoris; F17.200 Nicotine dependence, unspecified, uncomplicated; I10 Essential (primary) hypertension; I87.2 Venous insufficiency (chronic) (peripheral) | CPT/HCPCS: 93005; 99214 ==

== ENCOUNTER → 2024-10-11 13:34 | Outpatient (BNVA) | payer MEDICARE, SELFPAY | PROVIDERS: PCP Nurse Practitioner Family; Visit Provider Nurse Practitioner Family | DX: I87.2 Venous insufficiency (chronic) (peripheral) (principal); I48.91 Unspecified atrial fibrillation; I11.0 Hypertensive heart disease with heart failure; I50.30 Unspecified diastolic (congestive) heart failure; I25.10 Atherosclerotic heart disease of native coronary artery without angina pectoris; F17.200 Nicotine dependence, unspecified, uncomplicated; E78.5 Hyperlipidemia, unspecified; Z79.01 Long term (current) use of anticoagulants | CPT/HCPCS: 99214 ==

== ENCOUNTER → 2024-10-27 11:05 | Outpatient (BNVA) | payer MEDICARE, SELFPAY | PROVIDERS: PCP Nurse Practitioner Family; Visit Provider Internal Medicine Cardiovascular Disease | DX: I48.91 Unspecified atrial fibrillation (principal); R94.31 Abnormal electrocardiogram [ECG] [EKG] | CPT/HCPCS: 93005 ==

== ENCOUNTER → 2024-12-08 15:29 | Outpatient (BNVA) | payer MEDICARE, MEDICAID, SELFPAY | PROVIDERS: PCP Nurse Practitioner Family; Visit Provider Internal Medicine | DX: I11.0 Hypertensive heart disease with heart failure (principal); I50.30 Unspecified diastolic (congestive) heart failure; Z95.5 Presence of coronary angioplasty implant and graft; E78.5 Hyperlipidemia, unspecified; I25.10 Atherosclerotic heart disease of native coronary artery without angina pectoris; J43.2 Centrilobular emphysema | CPT/HCPCS: 99213 ==

== ENCOUNTER → 2025-06-12 13:41 | Outpatient (BNVA) | payer MEDICARE, MEDICAID, SELFPAY | PROVIDERS: PCP Nurse Practitioner Family; Visit Provider Internal Medicine | DX: I11.0 Hypertensive heart disease with heart failure (principal); I50.33 Acute on chronic diastolic (congestive) heart failure; I48.91 Unspecified atrial fibrillation; Z79.01 Long term (current) use of anticoagulants; Z79.82 Long term (current) use of aspirin; F17.210 Nicotine dependence, cigarettes, uncomplicated | CPT/HCPCS: 99214 ==